=== PATIENT | male | born 1950 | race Two or more races ===

== ENCOUNTER 2017-01-24 11:41 | Outpatient (CLI) | payer OTHER | END 2017-01-24 17:00 | disposition home or self-care (01) | LOC: RAD 11:41 | DX: N20.1 Calculus of ureter (principal) ==

== ENCOUNTER 2018-01-04 08:34 | Outpatient (CLI) | payer OTHER | END 2018-01-04 08:35 | disposition home or self-care (01) | LOC: SONOGRAMA 08:34 | DX: R16.0 Hepatomegaly, not elsewhere classified (principal) ==

== ENCOUNTER 2018-01-04 10:58 | Outpatient (CLI) | payer OTHER | END 2018-01-04 11:03 | disposition home or self-care (01) | LOC: NUCLEAR 10:58 | DX: M81.0 Age-related osteoporosis without current pathological fracture (principal) ==

== ENCOUNTER 2021-08-25 08:08 | Inpatient (IN) | payer OTHER ==
[~2021-08-25] VITALS: Ht 170.2 cm; Wt 93.9 kg
[2021-08-26] MEDS ORDERED: ALTACE10 MG PO (13:06)
[2021-08-26] MEDS ORDERED: METFORMIN HCL750 MG PO (13:06)
[2021-08-26] MEDS ORDERED: TOPROL XL25 M1 PO (13:07)
[2021-08-26] MEDS ORDERED: TAMS0.4C PO (13:07)
[2021-08-26] MEDS ORDERED: XANAX XR1 MG PO (13:07)
[2021-08-26] MEDS ORDERED: CRESTOR10 MG PO (13:08)
[2021-11-16] MEDS ORDERED: AZELASTINE205.5 MCG/ (13:19)
[2021-11-16] MEDS ORDERED: GABAPENTIN300 M2 (13:19)
[2021-11-16] MEDS ORDERED: FAMOTIDINE40 MG (13:19)
[2021-11-16] MEDS ORDERED: LANSOPRAZOLE30 MG (13:19)
[2021-11-16] MEDS ORDERED: FINASTERIDE5 MG (13:19)
[2021-11-16] MEDS ORDERED: OLANZAPINE2.5 MG (13:19)
[2021-11-16] MEDS ORDERED: VITAMIN D350 MCG (13:20)
[2021-11-16] MEDS ORDERED: TRIAMCINOLONE A15 G1 (13:20)
[2021-11-16] MEDS ORDERED: FUROSEMIDE20 MG (13:20)
[2021-11-16] MEDS ORDERED: MIRTAZAPINE15 MG (13:20)
== END 2021-11-18 09:03 | disposition home or self-care (01) | DRG 667 ==
LOC: SURG 08-31 10:00 → O/R 11-16 06:22 → SURG 11-16 10:00
PROVIDERS: ADMIT Urology; ATTEND Urology
PROC: 0TCB8ZZ Extirpation of Matter from Bladder, Via Natural or Artificial Opening Endoscopic (ICD-10-PCS; 2021-11-16)
PROC: 0VT08ZZ Resection of Prostate, Via Natural or Artificial Opening Endoscopic (ICD-10-PCS; principal; 2021-11-16 10:00)
DX: N21.0 Calculus in bladder (principal); N40.1 Benign prostatic hyperplasia with lower urinary tract symptoms; F52.21 Male erectile disorder; I10 Essential (primary) hypertension; E11.9 Type 2 diabetes mellitus without complications; Z79.84 Long term (current) use of oral hypoglycemic drugs